=== PATIENT | male | born 1970 | race Two or more races ===

== ENCOUNTER 2017-06-30 09:43 | Emergency (ER) | payer OTHER ==
[2017-06-30 09:55] LABS: POC GLUCOSE 394 mg/dL (70-99)
[2017-06-30 10:12] LABS: AGAP ISTAT 18 mmol/L (6-14); BUN ISTAT 11 mg/dL (8-26); CHLORIDE ISTAT 97 mmol/L (98-110); CREATININE ISTAT 0.6 mg/dL (0.5-1.4); GLUCOSE ISTAT 452 mg/dL (70-99); HEMATOCRIT ISTAT 37 % (37-52); HEMOGLOBIN ISTAT 12.6 g/dL (14-18); ION CA ISTAT 1.12 mmol/L (1.13-1.32); POTASSIUM ISTAT 3.7 mmol/L (3.5-5.0); SODIUM ISTAT 134 mmol/L (135-145); TOT CO2 ISTAT 23 mmol/L (23-32)
[2017-06-30] MEDS: valACYclovir 500 MG TABLET. PO ×2 (10:16)
[2017-06-30] MEDS: predniSONE 20 MG TABLET PO ×2 (10:16)
[2017-06-30] MEDS: INSULIN REGULAR 100 UNIT/ML 10ML VIAL. SQ ×2 (10:24)
== END 2017-06-30 10:26 | disposition home or self-care (01) ==
LOC: ER 09:43
DX: G51.0 Bell's palsy (principal); E11.65 Type 2 diabetes mellitus with hyperglycemia
CPT/HCPCS: 36415; 80047; 82962; 85014; 85018; 93005; 96372; 99283-25; J1815; J7512